=== PATIENT | male | born 1940 | race Caucasian/White ===

== ENCOUNTER → 2023-04-03 | Outpatient (CLI) | payer MEDICARE ==
[~2023-04-03] MED LIST: FAMO20TA PO; FINA5TAB2 PO; LIDOCAINE 1% MDV 20ML VIAL As Ordered ONE; MITI1CAP PO; SIMV20TA22 PO
[2023-04-03 08:50] VITALS: TEMP 97.9
[2023-04-03 12:30] VITALS: BP 151/89; O2SAT 95
== END ==
LOC: M IRPRO 08:36
PROVIDERS: ATTEND Internal Medicine
DX: C22.9 Malignant neoplasm of liver, not specified as primary or secondary (principal)